=== PATIENT | male | born 1975 | race Caucasian/White ===

== ENCOUNTER 2017-09-24 18:44 | Emergency (ER) | END 2017-09-24 19:32 | disposition left against medical advice (07) | LOC: UCCORT 18:44 | DX: S81.859A Open bite, unspecified lower leg, initial encounter (principal); W54.0XXA Bitten by dog, initial encounter; Y93.9 Activity, unspecified; Y92.9 Unspecified place or not applicable; Z53.21 Procedure and treatment not carried out due to patient leaving prior to being seen by health care provider ==

== ENCOUNTER 2017-09-24 20:25 | Emergency (ER) | payer SELFPAY ==
[2017-09-24] MEDS ORDERED: Amoxicillin/Clavulanate TAB* 875 MG PO ONE (20:48)
[2017-09-24] MEDS ORDERED: Tetan/Diph/Pertus SYR(Tdap)* 0.5 ML SYR(BOOSTRIX) use SYR IM ONE (20:48)
--- NOTE | 2017-09-24 20:57 | UC ---
Bite Injury/Animal HPI - HPI Summary HPI Summary: pt reports that he was bit by a dog today at 1800. The dog is a pet of an acquaintance. Rabies is up to date according to rectangular tank cooper. Pt is unsure of last tetanus. Pt cleaned wound prior to arrival, bleeding is controlled. - History of Current Complaint Chief Complaint: UCBiteInjury Stated Complaint: DOG BITE LEG Time Seen by Provider: 09/24/17 20:36 Hx Obtained From: Patient Severity Currently: Mild Severity Initially: Mild Onset/Duration: Sudden Onset Type of Bite: Pet Has Animal Been Immunized?: Yes Character: Puncture Associated Signs And Symptoms: Positive: Negative Hx of Bite: Provoked by: - pt Animal Available for Observation: Yes Animal Control Notified: No - Risk Factors Infection/Sepsis Risk Factors: Negative - Allergies/Home Medications Allergies/Adverse Reactions: Allergies Allergy/AdvReac Type Severity Reaction Status Date / Time No Known Allergies Allergy Verified 09/24/17 20:44 PMH/Surg Hx/FS Hx/Imm Hx Previously Healthy: Yes Psychological History: Anxiety - Surgical History Surgical History: Yes Surgery Procedure, Year, and Place: [place] teeth - Family History Known Family History: Positive: Cardiac Disease - Social History Occupation: Employed Full-time Lives: With Family Alcohol Use: Weekly Substance Use Type: None Smoking Status (MU): Never Smoked Tobacco Have You Smoked in the Last Year: No - Immunization History Hx Tetanus, Diphtheria Vaccination: No - unsure of last vaccine Review of Systems Constitutional: Negative Skin: Other - dog bite, to right lateral lower leg Eyes: Negative ENT: Negative Respiratory: Negative Cardiovascular: Negative Gastrointestinal: Negative Genitourinary: Negative Motor: Negative Neurovascular: Negative Musculoskeletal: Negative, Calf Tenderness Neurological: Negative Psychological: Negative Is Patient Immunocompromised?: No All Other Systems Reviewed And Are Negative: Yes Physical Exam Triage Information Reviewed: Yes Appearance: Well-Appearing Vital Signs: Initial Vital Signs Temp 98.2 F 09/24/17 20:36 Resp 16 09/24/17 20:36 Pulse Ox 98 09/24/17 20:36 Vital Signs Reviewed: Yes Eye Exam: Normal ENT Exam: Normal Respiratory Exam: Normal Musculoskeletal Exam: Normal Neurological Exam: Normal Psychological Exam: Normal Skin Exam: Other - right lateral lower le.5 cm long 3 mm wide superficial laceration. Bleeding controlled Bite Injury Course/Dx - Course Course Of Treatment: Pt received tetanus vaccine at visit - Differential Dx/Diagnosis Differential Diagnosis/HQI/PQRI: Laceration Provider Diagnoses: dog bite to right lower leg Discharge - Discharge Plan Condition: Stable Disposition: HOME Prescriptions: Amoxicillin/Clavulanate TAB* [Augmentin TAB 875*] 875 mg PO Q12H #14 tab Patient Education Materials: Animal Bite (ED) Referrals: Non Staff,Doctor [Primary Care Provider] - If Needed
== END 2017-09-24 21:10 | disposition home or self-care (01) ==
LOC: UCCORT 20:25
DX: S81.831A Puncture wound without foreign body, right lower leg, initial encounter (principal); W54.0XXA Bitten by dog, initial encounter; Y93.9 Activity, unspecified; Y92.9 Unspecified place or not applicable; Z23 Encounter for immunization; F41.9 Anxiety disorder, unspecified
CPT/HCPCS: 90471; 90715; 99202; A9270-GY; G0463

== ENCOUNTER 2019-06-08 10:19 | Emergency (ER) | payer BC ==
[2019-06-08 12:10] VITALS: BP 127/82
[2019-06-08 12:33] LABS: Influenza A Molecular NEGATIVE (Negative); Influenza B Molecular NEGATIVE (Negative)
--- NOTE | 2019-06-08 13:34 | UC ---
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5 mg PO ONCE PRN 06/08/19 [History Confirmed 06/08/19] Acetaminophen [Acetaminophen Extra Strength] 1,000 mg PO Q4HR PRN 06/08/19 [ History Confirmed 06/08/19] Ibuprofen 600 mg PO Q6HR PRN 06/08/19 [History Confirmed 06/08/19] PMH/Surg Hx/FS Hx/Imm Hx Previously Healthy: Yes - Surgical History Surgical History: Yes Surgery Procedure, Year, and Place: [place] teeth - Family History Known Family History: Positive: Cardiac Disease - Social History Alcohol Use: Weekly Substance Use Type: None Smoking Status (MU): Never Smoked Tobacco Have You Smoked in the Last Year: No - Immunization History Hx Tetanus, Diphtheria Vaccination: No - unsure of last vaccine Review of Systems All Other Systems Reviewed And Are Negative: Yes Constitutional: Positive: Fever, Chills, Fatigue Skin: Positive: Negative Eyes: Positive: Negative ENT: Positive: Sore Throat, Nasal Discharge Respiratory: Positive: Cough Musculoskeletal: Positive: Arthralgia, Myalgia Is Patient Immunocompromised?: No Physical Exam Triage Information Reviewed: Yes Appearance: Well-Nourished, Ill-Appearing Vital Signs: Initial Vital Signs Temp 102.5 F 06/08/19 12:03 Pulse 114 06/08/19 12:03 Resp 21 06/08/19 12:03 BP 127/82 06/08/19 12:03 Pulse Ox 100 06/08/19 12:03 Vital Signs Reviewed: Yes Eyes: Positive: Conjunctiva Clear ENT: Positive: Normal ENT inspection, Hearing grossly normal, Pharynx normal Neck: Positive: Supple, Nontender, No Lymphadenopathy Respiratory: Positive: Chest non-tender, Crackles - LEFT LOWER LUNGS Cardiovascular: Positive: Tachycardia Abdominal Exam: Normal Abdomen Description: Positive: Nontender, Soft. Negative: CVA Tenderness (R), CVA Tenderness (L), Distended, Guarding Bowel Sounds: Positive: Present Skin Exam: Normal Diagnostics - Radiology No standard instances Radiology Interpretation Completed By: Radiologist Summary of Radiographic Findings: [facility] XRAY REPORT : LLL PNEUMONIA Respiratory Course/Dx - Differential Dx/Diagnosis Provider Diagnosis: LLL pneumonia Discharge ED - Sign-Out/Discharge Documenting (check all that apply): Patient Departure All imaging exams completed and their final reports reviewed: Yes - Discharge Plan Condition: Stable Disposition: HOME Prescriptions: DOXYcycline CAP(*) [DOXYcycline 100MG CAP(*)] 100 mg PO BID #20 cap Patient Education Materials: Community Acquired Pneumonia (ED) Referrals: Ramiro Gavin MD [Primary Care Provider] - 7 Days - Billing Disposition and Condition Condition: STABLE Disposition: Home
== END 2019-06-08 13:12 | disposition home or self-care (01) ==
LOC: UCCORT 10:19
DX: J18.1 Lobar pneumonia, unspecified organism (principal); M79.10 Myalgia, unspecified site; M25.50 Pain in unspecified joint
CPT/HCPCS: 71046; 99212; G0463